=== PATIENT | male | born 1955 | race Hispanic/Latino ===

== ENCOUNTER 2019-07-15 21:05 | Emergency (ER) | payer OTHER ==
[2019-07-15 21:52] LABS: BASOPHILS % (AUTO) 0.5 % (0.0-5.0); EOSINOPHILS % (AUTO) 1.3 % (0.0-8.0); HEMATOCRIT 42.2 % (42-54); LYMPHOCYTES % (AUTO) 22.9 % (21.0-51.0); MEAN CORPUSCULAR HEMOGLOBIN 31.8 pg (27.0-33.0); MEAN CORPUSCULAR HGB CONC 34.7 g/dL (32.0-36.0); MEAN CORPUSCULAR VOLUME 91.6 fL (79-99); NEUTROPHILS % (AUTO) 65.3 % (40.0-77.0); PLATELET COUNT (AUTO) 177 K/uL (130-400); RED BLOOD CELL COUNT(AUTO) 4.61 MIL/uL (4.50-6.20); RED CELL DISTRIBUTION WIDTH 12.5 % (11.0-15.5); WHITE BLOOD COUNT (AUTO) 9.7 K/uL (4.8-10.8)
[2019-07-15 22:02] LABS: CREATININE 0.9 mg/dL (0.5-1.5); POTASSIUM 3.6 mmol/L (3.5-5.1)
[2019-07-15 22:08] LABS: ALBUMIN 3.6 g/dL (3.5-5.0); BILIRUBIN,TOTAL 0.3 mg/dL (0.2-1.0); CRP QUANTITATIVE 30.5 mg/L (0.00-9.0); TOTAL PROTEIN, SERUM 7.3 g/dL (6.0-8.3)
[2019-07-15 22:19] LABS: B-TYPE NATRIURETIC PEPTIDE 6 pg/mL (0-100)
[2019-07-15] MEDS ORDERED: KETOROLAC TROMETHAMINE 15MG/ML ONE (22:30)
[2019-07-15 22:39] LABS: APPEARANCE,URINE Clear (CLEAR); BILIRUBIN,URINE Negative (NEGATIVE); COLOR,URINE Yellow (YELLOW); GLUCOSE, URINE (UA) Negative (NEGATIVE); KETONES,URINE Negative (NEGATIVE); LEUKOCYTE ESTERASE ,URINE Negative (NEGATIVE); NITRATE,URINE Negative (NEGATIVE); OCCULT BLOOD,URINE Negative (NEGATIVE); PROTEIN,URINE Negative (NEGATIVE); UROBILINOGEN,URINE 0.2 mg/dL (0.2-1.0)
[2019-07-15 23:05] LABS: ERYTHROCYTE SEDIMENTATION RATE 11 MM/HR (0-20)
== END 2019-07-15 23:16 | disposition home or self-care (01) ==
LOC: EDH 21:05
DX: M25.561 Pain in right knee (principal); M79.672 Pain in left foot; M79.671 Pain in right foot; Z98.890 Other specified postprocedural states
CPT/HCPCS: 36415; 80053; 81003; 83880; 84550; 85025; 85651; 86140; 96374; 99284; J1885